=== PATIENT | female | born 1975 | race Caucasian/White ===

== ENCOUNTER 2019-07-07 22:33 | Inpatient (IN) | payer OTHER ==
[~2019-07-07] VITALS: Ht 170.2 cm; Wt 86.2 kg
[2019-07-08 00:10] VITALS: BP 123/75
[2019-07-08 01:25] VITALS: BP 123/75
[2019-07-08] MEDS ORDERED: Z GUARD REMEDY 2 OZ OINT TP PRN (02:00)
[2019-07-08] MEDS ORDERED: MAGNESIUM HYDROXIDE 30 ML UDC PO PRN (02:00)
[2019-07-08] MEDS ORDERED: MAG HYDROX/AL HYDROX/SIMETH 30 ML UDC PO PRN (02:00)
[2019-07-08] MEDS ORDERED: ACETAMINOPHEN 325 MG TABLET PO PRN (02:00)
[2019-07-08] MEDS ORDERED: ONDANSETRON HCL/PF 4 MG/2 ML VIAL IVP PRN (02:00)
[2019-07-08] MEDS ORDERED: HYDROCODONE/APAP 5/325MG 1 EACH TABLET PO PRN (02:00)
--- NOTE | 2019-07-08 02:26 | NUR ---
MS/RN RECEIVED PATIENT AT AROUND [address] [facility], PATIENT WAS AWAKE, ALERT, ORIENTED, COMFORTABLE, NO C/O PAIN, NO DISTRESS NOTED, ADMISSION DONE, PHOTO TAKEN ON LEFT BUTTOCK SWELLING/REDNESS, MADE COMFORTABLE IN BED, CALLED DR. NEAL FOR ADMISSION ORDERS.
[2019-07-08] MEDS ORDERED: VANCOMYCIN 1.25 GM in IV D5W 250 ML IV ONE (03:00)
[2019-07-08] MEDS ORDERED: VANCOMYCIN 1 GM VIAL ONE ×2 (03:14→03:17)
--- NOTE | 2019-07-08 06:11 | NUR ---
MS/RN PATIENT IS STILL SLEEPING AT THIS TIME, APPEAR COMFORTABLE, NO SIGNS OF DISTRESS NOTE, ALL NEEDS ATTENDED AT THIS TIME, WILL CONTINUE TO MONITOR.
[2019-07-08 07:57] VITALS: BP 136/79
--- NOTE | 2019-07-08 08:00 | NUR ---
MS RN OPENING NOTES RECEIVED PT IN BED AWAKE ALERT AND ORIENTED X 4. PLEASANT. NO CARDIAC OR RESP DISTRESS NOTED. NO SOB. SATURATING WELL AT ROOM AIR. IV ACCESS NOTED ON R AC G20. INTACT PACTENT AND FLUSHING WELL. NO S/S OF INFECTION AND INFILTRATION NOTED. PT IUS AMBULATORY. WILL CONT TO MONITOR.
[2019-07-08] MEDS ORDERED: NALT380S2 IM (08:12)
[2019-07-08] MEDS: IBUPROFEN 600 MG TABLET PO PRN ×2 (08:13→09:13)
[2019-07-08 08:29] LABS: CALCIUM, SERUM 8.5 mg/dL (8.5-10.1); CREATININE 0.7 mg/dL (0.6-1.3); POTASSIUM 3.4 mmol/L (3.5-5.1)
[2019-07-08] MEDS ORDERED: FEE PK DOSING 1 MIN EA MC ONE (09:50)
[2019-07-08] MEDS ORDERED: POTASSIUM CHLORIDE 20 MEQ TAB.PRT.SR PO SCH (10:30)
--- NOTE | 2019-07-08 10:50 | NUR ---
WOUND CARE CONSULT: PT PRESENTS WITH SCRATCH ZARCO AND TENDERNESS TO LEFT BUTTOCK, PRESENT ON ADMISSION. DEFER TO PMD CURRENTLY TREATING PT. WILL SEE PRN. PT IS CONTINENT AND INDEPENDENT WITH BED MOBILITY. CURRENT TAWNYA SCORE IS 21.
[2019-07-08] MEDS ORDERED: IV NS 0.9% 1,000 ML IV ONE (11:00)
--- NOTE | 2019-07-08 15:00 | NUR ---
IV REINSERTED IV REINSERTED ON RFA. LAC IV WAS INFILTRATED APPLIED ICE AND ELEVATED RUE TO REDUCE SWELLING. RFA IV G22 IS INTACT AND PATENT. NO S/S OF INFECTION OR INFILTRATION NOTED.
[2019-07-08 16:00] VITALS: BP 130/81
[2019-07-08] MEDS: VANCOMYCIN 1.25 GM in IV D5W 250 ML IV SCH (16:19)
--- NOTE | 2019-07-08 18:00 | NUR ---
SMELL OF WEED PT'S BOYFRIEND CAME TO VISIT. THEN AFTER A FEW MINUTES I WAS NOTIFIED THAT IT SMELLED LIKE MARIJUANA. WENT IN THE PTS ROOM TO INVESTIGATE. I INFORMED BOTH OF THEM THAT WE DO NOT ALLOW WEEDS PRESENCE IN THE HOSPITAL. EXPLAINED THAT THERE IS NOT SMOKING ALLOWED WITHIN THE PREMISES OF THE HOSPITAL. EXPLAINED HOSPITALS SMOKING POLICY.PT UNDERSTOOD. ALSO EXPLAINED RISKS OF FIRE IF SMOKING IN THE ROOM OCCURSA. PT APOLOGIZED, SHE SAID THAT THE WEED CAME FROM HER BAG WHEN SHE WAS GOING THROUGH HER PURSE. SHE STATES, "I DIDN'T THINK IT WAS GONNA SMELL SO MUCH LIKE THAT. I BARELY TOOK IT OUT OF MY PURSE TO GIVE IT TO MY BF TO TAKE IT HOME. I WOULD NEVER SMOKE IN HERE. I PROMISE."
--- NOTE | 2019-07-08 18:15 | NUR ---
MS RN CLOSING NOTES PT IN BED AWAKE ALERT AND ORIENTED X 4. PLEASANT. NO CARDIAC OR RESP DISTRESS NOTED. NO SOB. SATURATING WELL AT ROOM AIR. IV ACCESS NOTED ON R FA G20. INTACT PATENT AND FLUSHING WELL. NO S/S OF INFECTION AND INFILTRATION NOTED. PT IS AMBULATORY. WILL CONT TO MONITOR.
--- NOTE | 2019-07-08 19:48 | NUR ---
MS RN NOTES RECEIVED PATIENT IN BED AWAKE ALERT AND ORIENTED X 4. NO CARDIAC OR RESPIRATORY DISTRESS NOTED. NO SOB NOTED. DENIES PAIN OR DISCOMFORT AT THIS TIME. SATURATING WELL AT ROOM AIR. IV ACCESS NOTED ON R FA G20. INTACT PATENT AND FLUSHING WELL. NO SIGNS AND SYMPTOMS OF INFECTION AND INFILTRATION NOTED. PT IS AMBULATORY. WILL CONTINUE TO MONITOR ACCORDINGLY.
[2019-07-08 20:00] VITALS: BP 139/85
[2019-07-09 06:13] LABS: BASOPHILS % (AUTO) 0.4 % (0.0-2.0); EOSINOPHILS % (AUTO) 19.9 % (0.0-6.0); HEMATOCRIT 41 % (33-45); HEMOGLOBIN 13.4 g/dL (11.5-14.8); LYMPHOCYTES % (AUTO) 25.6 % (20.0-44.0); MEAN CORPUSCULAR HGB CONC 32 g/dl (31.0-36.0); MEAN CORPUSCULAR VOLUME 97 fL (82-100); MONOCYTES # (AUTO) 0.6 /CMM (0.1-1.30); MONOCYTES % (AUTO) 7.9 % (2.0-12.0); NEUTROPHILS # (AUTO) 3.6 /CMM (1.8-8.9); NEUTROPHILS % (AUTO) 46.2 % (43.0-81.0); PLATELET COUNT (AUTO) 229 /CMM (150-450); RED BLOOD CELL COUNT(AUTO) 4.25 MIL/uL (4.0-5.2); WHITE BLOOD COUNT (AUTO) 7.9 K/uL (4.3-11.0)
[2019-07-09 06:42] LABS: CALCIUM, SERUM 8.2 mg/dL (8.5-10.1); CREATININE 0.7 mg/dL (0.6-1.3); MAGNESIUM 1.9 mg/dL (1.8-2.4); PHOSPHORUS 3.3 mg/dL (2.5-4.9); POTASSIUM 4.1 mmol/L (3.5-5.1)
--- NOTE | 2019-07-09 06:42 | NUR ---
MS RN NOTES ALL NEEDS ATTENDED AND MET, SLEEPING IN BED QTNO CARDIAC OR RESPIRATORY DISTRESS NOTED. NO SOB NOTED. DENIES PAIN OR DISCOMFORT AT THIS TIME. SATURATING WELL AT ROOM AIR. IV ACCESS NOTED ON R FA G20. INTACT PATENT AND FLUSHING WELL. NO SIGNS AND SYMPTOMS OF INFECTION AND INFILTRATION NOTED. PT IS AMBULATORY. WILL ENDORSE TO AM NURSE FOR CONTINUITY OF CARE.
[2019-07-09] MEDS: VANCOMYCIN 1.25 GM in IV D5W 250 ML IV SCH ×2 (07:25→17:08)
--- NOTE | 2019-07-09 07:48 | NUR ---
MS/RN OPENING NOTE Patient is resting in bed, A/o x4, showing no signs of acute distress or SOB, stable on RA. IV line in the RAC #20g is clean and intact running vancomycin at 125ml/hr. Left buttock shows reduced swelling and patient is complaining of 0/10 pain at this time. Bed is in lowest position, side rails x3 in upright position, patient is aware of how to call for assistance when needed, fall, safety and aspiration precautions enforced. Will continue with plan of care.
[2019-07-09 08:00] VITALS: BP 111/65
--- NOTE | 2019-07-09 12:00 | NUR ---
MS/RN NOTE New IV line inserted in left hand #22g due to RFA infiltrated.
--- NOTE | 2019-07-09 19:33 | NUR ---
MS/RN CLOSING NOTE Patient is resting in bed, A/o x4, showing no signs of acute distress or SOB, stable on RA. IV line in the RAC #20g is clean and intact running vancomycin at 125ml/hr. Left buttock shows reduced swelling and patient has no complaints of pain during my shift. Bed is in lowest position, side rails x3 in upright position, patient is aware of how to call for assistance when needed, safety and universal precautions enforced. Will endorse to night manager.
[2019-07-09 20:00] VITALS: BP 132/79
[2019-07-09 20:37] VITALS: BP 132/79
[2019-07-10] MEDS: VANCOMYCIN 1.25 GM in IV D5W 250 ML IV SCH (05:02)
--- NOTE | 2019-07-10 06:33 | NUR ---
MS RN NOTES ALL NEEDS ATTENDED AND MET, SLEEPING IN BED. CARDIAC OR RESPIRATORY DISTRESS NOTED. NO SOB NOTED. DENIES PAIN OR DISCOMFORT AT THIS TIME. SATURATING WELL AT ROOM AIR. IV ACCESS NOTED ON R FA G20. INTACT PATENT AND FLUSHING WELL. NO SIGNS AND SYMPTOMS OF INFECTION AND INFILTRATION NOTED. PT IS AMBULATORY. WILL ENDORSE TO AM NURSE FOR CONTINUITY OF CARE.
--- NOTE | 2019-07-10 07:33 | NUR ---
MS/RN OPENING NOTES RECEIVED PATIENT SETTING ON BED COMFORTABLY. PATIENT IS AWAKE AND ORIENTED X4. NO SIGNS OF DISTRESS. DENIES PAIN AT THIS TIME. NO APPARENT DISTRESS NOTED. SAFETY MEASURES IN PLACE, BED IN LOWEST POSITION SIDE RAILS UP X2. CALL LIGHT WITHIN REACH.WILL CONTINUE TO MONITOR.
[2019-07-10 08:25] VITALS: BP 120/85
[2019-07-10 09:23] LABS: BASOPHILS # (AUTO) 0.1 /CMM (0.0-0.2); BASOPHILS % (AUTO) 0.6 % (0.0-2.0); HEMATOCRIT 45 % (33-45); HEMOGLOBIN 14.7 g/dL (11.5-14.8); LYMPHOCYTES # (AUTO) 1.5 /CMM (0.8-4.8); LYMPHOCYTES % (AUTO) 16.4 % (20.0-44.0); MEAN CORPUSCULAR HGB CONC 32 g/dl (31.0-36.0); MEAN CORPUSCULAR VOLUME 96 fL (82-100); MONOCYTES # (AUTO) 0.5 /CMM (0.1-1.30); MONOCYTES % (AUTO) 5.4 % (2.0-12.0); NEUTROPHILS # (AUTO) 4.7 /CMM (1.8-8.9); NEUTROPHILS % (AUTO) 51.5 % (43.0-81.0); PLATELET COUNT (AUTO) 262 /CMM (150-450); RED BLOOD CELL COUNT(AUTO) 4.75 MIL/uL (4.0-5.2); WHITE BLOOD COUNT (AUTO) 9.1 K/uL (4.3-11.0)
[2019-07-10 09:28] LABS: EOSINOPHILS % (AUTO) 26.1 % (0.0-6.0)
[2019-07-10 09:39] LABS: CALCIUM, SERUM 8.6 mg/dL (8.5-10.1); CREATININE 0.9 mg/dL (0.6-1.3); POTASSIUM 3.9 mmol/L (3.5-5.1)
[2019-07-10 10:23] LABS: EOSINOPHILS % (MANUAL) 27 % (0-4); LYMPHOCYTES % (MANUAL) 23 % (16-48); MONOCYTES % (MANUAL) 3 % (0-11.0); NEUTROPHILS % (MANUAL) 47 (42-76)
[2019-07-10] MEDS ORDERED: CEPH500C2 PO (11:16)
[2019-07-10] MEDS ORDERED: DOXY100C41 PO (11:16)
--- NOTE | 2019-07-10 12:28 | NUR ---
MS/RN NOTES PATIENT IS ALERT AND ORIENTED X4. DENIES ANY PAIN AT THIS TIME. IN ROOM AIR AND SATURATION IS AT 100%. RESPIRATION REGULAR AND UNLABORED. THE PATIENT IN NO APPARENT DISTRESS. SEEN AND EXAMINED BY MD WITH ORDERS MADE AND CARRIED OUT. ALL DUE MED WAS GIVEN ORDERED. PATIENT WAS GIVEN DISCHARGED INSTRUCTIONS AND PATIENT VERBALIZED UNDERSTANDING. BELONGINGS FORM AND DISCHARGED FORM WAS SIGN BY THE PATIENT. THE PATIENT LEFT IN STABLE CONDITION, ACCOMPANIED BY ROBINSON THE BOYFRIEND ON A PRIVATE CAR.
== END 2019-07-10 12:00 | disposition home or self-care (01) | DRG 383 ==
LOC: MED 23:49
PROVIDERS: ADMIT Nurse Practitioner Acute Care; ATTEND Nurse Practitioner Acute Care
DX: L03.317 Cellulitis of buttock (principal); E87.6 Hypokalemia; Z98.890 Other specified postprocedural states; F17.210 Nicotine dependence, cigarettes, uncomplicated; Z86.19 Personal history of other infectious and parasitic diseases; Z86.14 Personal history of Methicillin resistant Staphylococcus aureus infection; F15.10 Other stimulant abuse, uncomplicated; F10.24 Alcohol dependence with alcohol-induced mood disorder; Y90.9 Presence of alcohol in blood, level not specified
CPT/HCPCS: 36415; 80048-TC; 80202-TC; 83735-TC; 84100-TC; 84703-TC; 85025-TC; 87081-TC; G0378; J3370; J7030; J7060